=== PATIENT | male | born 1955 | race Caucasian/White ===

== ENCOUNTER 2017-04-11 06:24 | Emergency (ER) | payer BC ==
--- NOTE | 2017-04-11 08:18 | US ---
EXAMINATION TYPE: US venous doppler duplex LE RT DATE OF EXAM: 04/11/2017 7:37 AM COMPARISON: NONE CLINICAL HISTORY: Pain. Pain lower right leg SIDE PERFORMED: Right TECHNIQUE: The lower extremity deep venous system is examined utilizing real time linear array sonog ayah with graded compression, doppler sonography and color-flow sonography. VESSELS IMAGED: External Iliac Vein (EIV) Common Femoral Vein Deep Femoral Vein Greater Saphenous Vein * Femoral Vein Popliteal Vein Small Saphenous Vein * Proximal Calf Veins (* superficial vessels) Right Leg: Negative for DVT No popliteal fossa lesion is seen. IMPRESSION: THIS EXAMINATION IS NEGATIVE FOR DVT IN THE RIGHT LEG.
--- NOTE | 2017-04-11 08:35 | ED ---
General Adult HPI - General Chief complaint: Extremity Injury, Lower Stated complaint: Right Leg Pain Time Seen by Provider: 04/11/17 07:19 Source: patient, RN notes reviewed, old records reviewed Mode of arrival: ambulatory Limitations: no limitations - History of Present Illness Initial comments: This is a 61-year-old male the ER with extremity injury and pain. Patient has right lower extremity pain. Patient denies any previous injury or trauma. Patient concern for blood clot many concerted pain and tingling in his right lower extremity. No back pain. No history of DVT - Related Data Home Medications Medication Instructions Recorded Confirmed Milk Thistle 150 mg PO DAILY 07/09/15 04/11/17 Multivitamins, Thera [Multivitamin] 1 tab PO DAILY 07/09/15 04/11/17 Vitamin B 12 1 tab PO DAILY 07/09/15 04/11/17 Allopurinol [Zyloprim] 150 mg PO DAILY 04/11/17 04/11/17 Lisinopril [Zestril] 20 mg PO BID 04/11/17 04/11/17 Loratadine [Claritin] 10 mg PO DAILY PRN 04/11/17 04/11/17 Metoprolol Tartrate [Lopressor] 25 mg PO BID 04/11/17 04/11/17 Sulfamethox-Tmp 800-160Mg [Bactrim 1 tab PO SUTUFR 04/11/17 04/11/17 DS 800-160 mg] Tamsulosin HCl [Flomax] 0.4 mg PO HS 04/11/17 04/11/17 cycloSPORINE [cycloSPORINE (GEQ 75 mg PO BID 04/11/17 04/11/17 for SandIMMUNE)] Previous Rx's Medication Instructions Recorded Naproxen [Naprosyn] 500 mg PO Q12HR PRN #30 tab 04/11/17 Allergies Allergy/AdvReac Type Severity Reaction Status Date / Time acetaminophen [From Tylenol] AdvReac Unknown HX OF Verified 04/11/17 08:42 LIVER TRANSPLANT- CANNOT TAKE candesartan cilexetil AdvReac Unknown HEADACHE Verified 04/11/17 08:42 [From Atacand] Review of Systems ROS Statement: Those systems with pertinent positive or pertinent negative responses have been documented in the HPI. ROS Other: All systems not noted in ROS Statement are negative. Past Medical History Past Medical History: Hypertension Additional Past Medical History / Comment(s): HX OF HEPATITIS C, LIVER CIRROHOSIS & LIVER TRANSPLANT (1998). GOUT, "KIDNEYS STRESSED" DUE TO LIVER TRANSPLANT. HX OF ESOPHAGEAL VARICIES. History of Any Multi-Drug Resistant Organisms: None Reported Past Surgical History: Tonsillectomy Additional Past Surgical History / Comment(s): LIVER TRANSPLANT (1998), PERIDONTAL CYST, COLONOSCOPY'S, EGD WITH ESOPHAGEAL VARICIES. Past Anesthesia/Blood Transfusion Reactions: No Reported Reaction Additional Past Anesthesia/Blood Transfusion Reaction / Comment(s): HX OF BLOOD TRANSFUSION (NO PROBLEM) Past Psychological History: No Psychological Hx Reported Smoking Status: Former smoker Past Alcohol Use History: None Reported Past Drug Use History: None Reported - Past Family History Mother Family Medical History: No Reported History General Exam Limitations: no limitations General appearance: alert, in no apparent distress Head exam: Present: atraumatic, normocephalic, normal inspection Eye exam: Present: normal appearance, PERRL, EOMI. Absent: scleral icterus, conjunctival injection, periorbital swelling ENT exam: Present: normal exam, mucous membranes moist Neck exam: Present: normal inspection. Absent: tenderness, meningismus, lymphadenopathy Respiratory exam: Present: normal lung sounds bilaterally. Absent: respiratory distress, wheezes, rales, rhonchi, stridor Cardiovascular Exam: Present: regular rate, normal rhythm, normal heart sounds. Absent: systolic murmur, diastolic murmur, rubs, gallop, clicks GI/Abdominal exam: Present: soft, normal bowel sounds. Absent: distended, tenderness, guarding, rebound, rigid Extremities exam: Present: normal inspection, full ROM, normal capillary refill. Absent: tenderness, pedal edema, joint swelling, calf tenderness Back exam: Present: normal inspection Neurological exam: Present: alert, oriented X3, CN II-XII intact Psychiatric exam: Present: normal affect, normal mood Skin exam: Present: warm, dry, intact, normal color. Absent: rash Course Vital Signs 04/11/17 04/11/17 06:35 09:37 Temperature 98.3 F 97.6 F Pulse Rate 68 67 Respiratory 18 16 Rate Blood Pressure 164/69 156/75 O2 Sat by Pulse 98 99 Oximetry Medical Decision Making - Medical Decision Making 61 male the ER with right leg pain pain in right knee and ankle. X-rays are negative for injury. Ultrasound was negative for DVT, patient given pain control and discharged home - Radiology Data Radiology results: report reviewed (Ultrasound x-ray right leg negative for injury, negative for DVT), image reviewed Disposition Clinical Impression: Right leg pain Disposition: HOME SELF-CARE Condition: Good Instructions: Leg Pain (ED) Prescriptions: Naproxen [Naprosyn] 500 mg PO Q12HR PRN #30 tab PRN Reason: Pain Referrals: Leela Cho DO [Primary Care Provider] - 1-2 days
--- NOTE | 2017-04-11 08:48 | XR ---
EXAMINATION TYPE: XR tibia fibula RT , 3 VIEWS DATE OF EXAM ORDERED: 04/11/2017 HISTORY: Pain. COMPARISON: None. FINDINGS: No fracture, dislocation or other acute osseous lesion is seen. There are mild changes of osteoarthritis within the knee. IMPRESSION: NO ACUTE OSSEOUS LESION.
[2017-04-11 09:38] VITALS: BP 156/75; PULSE 67; RESP 16; TEMP 97.6
== END 2017-04-11 09:39 | disposition home or self-care (01) ==
LOC: EC 06:24
DX: M79.604 Pain in right leg (principal); I10 Essential (primary) hypertension; Z87.891 Personal history of nicotine dependence; Z79.899 Other long term (current) drug therapy; Z88.6 Allergy status to analgesic agent; Z88.8 Allergy status to other drugs, medicaments and biological substances
CPT/HCPCS: 99284

== ENCOUNTER 2018-01-28 12:42 | Inpatient (IN) | payer BC ==
[2018-01-28] MEDS ORDERED: SODIUM CHLORIDE 0.9% 500 ML 500 ML IV STA (13:34)
[2018-01-28] MEDS ORDERED: DILTIAZEM DRIP BOLUS FROM BAG 1 MG SOLN IV ONE (13:35)
[2018-01-28] MEDS ORDERED: HEPARIN SODIUM,PORCINE 5,000 UNIT/ML 1 ML VIAL IV ONE (13:36)
--- NOTE | 2018-01-28 13:41 | ED ---
General Adult HPI - General Chief complaint: Arrhythmia/Palpitations Stated complaint: AFIB Time Seen by Provider: 01/28/18 12:45 Source: patient, RN notes reviewed Mode of arrival: ambulatory Limitations: no limitations - History of Present Illness Initial comments: This is a 62-year-old male who presents emergency Department complaining of having atrial fibrillation at this time. Patient states he came in to have knee surgery done they did an EKG on the patient and the patient was in atrial fibrillation. Patient states she has no previous history. Patient denies any palpitations patient denies any chest pain patient denies any difficulty breathing or shortness of breath. Patient denies any symptoms whatsoever. Patient states he has not noticed any lightheadedness or dizziness. Patient denies any numbness weakness. Patient denies any headache. Patient denies any calf pain or leg swelling. - Related Data Home Medications Medication Instructions Recorded Confirmed Multivitamins, Thera [Multivitamin] 1 tab PO DAILY 07/09/15 01/28/18 Vitamin B 12 1 tab PO DAILY 07/09/15 01/28/18 Lisinopril [Zestril] 10 mg PO BID 04/11/17 01/28/18 Loratadine [Claritin] 10 mg PO DAILY PRN 04/11/17 01/28/18 Sulfamethox-Tmp 800-160Mg [Bactrim 1 tab PO SUWESA 04/11/17 01/28/18 DS 800-160 mg] Tamsulosin HCl [Flomax] 0.4 mg PO HS 04/11/17 01/28/18 cycloSPORINE [cycloSPORINE (GEQ 75 mg PO BID 04/11/17 01/28/18 for SandIMMUNE)] Metoprolol Tartrate [Lopressor] 12.5 mg PO BID 01/28/18 01/28/18 Allergies Allergy/AdvReac Type Severity Reaction Status Date / Time acetaminophen [From Tylenol] AdvReac Unknown HX OF Verified 01/28/18 13:10 LIVER TRANSPLANT- CANNOT TAKE candesartan cilexetil AdvReac Unknown HEADACHE Verified 01/28/18 13:10 [From Atacand] Review of Systems ROS Statement: Those systems with pertinent positive or pertinent negative responses have been documented in the HPI. ROS Other: All systems not noted in ROS Statement are negative. Past Medical History Past Medical History: Hypertension Additional Past Medical History / Comment(s): HX OF HEPATITIS C, LIVER CIRROHOSIS & LIVER TRANSPLANT (1998). GOUT, "KIDNEYS STRESSED" DUE TO LIVER TRANSPLANT. HX OF ESOPHAGEAL VARICIES. History of Any Multi-Drug Resistant Organisms: None Reported Past Surgical History: Tonsillectomy Additional Past Surgical History / Comment(s): LIVER TRANSPLANT (1998), PERIDONTAL CYST, COLONOSCOPY'S, EGD WITH ESOPHAGEAL VARICIES, cataracts removed Past Anesthesia/Blood Transfusion Reactions: No Reported Reaction Additional Past Anesthesia/Blood Transfusion Reaction / Comment(s): HX OF BLOOD TRANSFUSION (NO PROBLEM) Past Psychological History: No Psychological Hx Reported Smoking Status: Former smoker Past Alcohol Use History: None Reported Past Drug Use History: None Reported - Past Family History Mother Family Medical History: No Reported History General Exam - General Exam Comments Initial Comments: GENERAL: Patient is well-developed and well-nourished. Patient is nontoxic and well- hydrated and is in mild distress. ENT: Neck is soft and supple. No significant lymphadenopathy is noted. Oropharynx is clear. Moist mucous membranes. Neck has full range of motion without eliciting any pain. EYES: The sclera were anicteric and conjunctiva were pink and moist. Extraocular movements were intact and pupils were equal round and reactive to light. Eyelids were unremarkable. PULMONARY: Unlabored respirations. Good breath sounds bilaterally. No audible rales rhonchi or wheezing was noted. CARDIOVASCULAR: Atrial fibrillation at a rate of 130 beats a minute ABDOMEN: Soft and nontender with normal bowel sounds. No palpable organomegaly was noted. There is no palpable pulsatile mass. SKIN: Skin is clear with no lesions or rashes and otherwise unremarkable. NEUROLOGIC: Patient is alert and oriented x3. Cranial nerves II through XII are grossly intact. Motor and sensory are also intact. Normal speech, volume and content. Symmetrical smile. MUSCULOSKELETAL: Normal extremities with adequate strength and full range of motion. No lower extremity swelling or edema. No calf tenderness. LYMPHATICS: No significant lymphadenopathy is noted PSYCHIATRIC: Normal psychiatric evaluation. Limitations: no limitations Course Vital Signs 01/28/18 01/28/18 12:43 14:03 Temperature 97.9 F Pulse Rate 69 119 H Respiratory 16 18 Rate Blood Pressure 134/78 127/70 O2 Sat by Pulse 95 99 Oximetry Medical Decision Making - Medical Decision Making EKG shows atrial fibrillation with rapid ventricular response at 126 bpm QRS is 94 QT interval 308 QTC is 446. Patient's EKG shows no ST segment elevation or depression or T wave abnormalities are noted. Chest x-ray shows no acute normalities. I started the patient on Cardizem and heparin. I spoke with Dr. Mejia he agreed to admit the patient admitted the patient I consult cardiology. I continue the heparin and Cardizem on the floor. - Lab Data Result diagrams: 01/28/18 13:07 01/28/18 13:07 Lab Results 01/28/18 01/28/18 Range/Units 13:07 13:07 WBC 6.5 (3.8-10.6) k/uL RBC 5.07 (4.30-5.90) m/uL Hgb 15.8 (13.0-17.5) gm/dL Hct 45.9 (39.0-53.0) % MCV 90.5 (80.0-100.0) fL MCH 31.2 (25.0-35.0) pg MCHC 34.5 (31.0-37.0) g/dL RDW 13.1 (11.5-15.5) % Plt Count 156 (150-450) k/uL Neutrophils % 81 % Lymphocytes % 11 % Monocytes % 5 % Eosinophils % 1 % Basophils % 0 % Neutrophils # 5.3 (1.3-7.7) k/uL Lymphocytes # 0.7 L (1.0-4.8) k/uL Monocytes # 0.3 (0-1.0) k/uL Eosinophils # 0.1 (0-0.7) k/uL Basophils # 0.0 (0-0.2) k/uL Sodium 138 (137-145) mmol/L Potassium 4.4 (3.5-5.1) mmol/L Chloride 107 (98-107) mmol/L Carbon Dioxide 22 (22-30) mmol/L Anion Gap 9 mmol/L BUN 29 H (9-20) mg/dL Creatinine 1.27 H (0.66-1.25) mg/dL Est GFR (CKD-EPI)AfAm 69 (>60 ml/min/1.73 sqM) Est GFR (CKD-EPI)NonAf 60 (>60 ml/min/1.73 sqM) Glucose 112 H (74-99) mg/dL Calcium 9.6 (8.4-10.2) mg/dL Magnesium 1.6 (1.6-2.3) mg/dL Total Bilirubin 1.6 H (0.2-1.3) mg/dL AST 44 (17-59) U/L ALT 70 (21-72) U/L Alkaline Phosphatase 98 (38-126) U/L Total Protein 6.2 L (6.3-8.2) g/dL Albumin 3.6 (3.5-5.0) g/dL Critical Care Time Critical Care Time: Yes Total Critical Care Time: 35 Disposition Clinical Impression: Atrial fibrillation with rapid ventricular response Disposition: ADMITTED IP TO THIS HOSP Referrals: Leela Cho DO [Primary Care Provider] - 1-2 days Time of Disposition: 14:09
[2018-01-28 13:49] LABS: Basophils % (A) 0 %; Eosinophils # (A) 0.1 k/uL (0-0.7); Eosinophils % (A) 1 %; HCT 45.9 % (39.0-53.0); HGB 15.8 gm/dL (13.0-17.5); Lymphocytes # (A) 0.7 k/uL (1.0-4.8); Lymphocytes % (A) 11 %; MCH 31.2 pg (25.0-35.0); MCHC 34.5 g/dL (31.0-37.0); MCV 90.5 fL (80.0-100.0); Mean Platelet Volume 7.7; Monocytes # (A) 0.3 k/uL (0-1.0); Monocytes % (A) 5 %; Neutrophils # (A) 5.3 k/uL (1.3-7.7); Neutrophils % (A) 81 %; Platelet Count 156 k/uL (150-450); RBC 5.07 m/uL (4.30-5.90); RDW 13.1 % (11.5-15.5); WBC 6.5 k/uL (3.8-10.6)
--- NOTE | 2018-01-28 13:57 | XR ---
EXAMINATION TYPE: XR chest 2V DATE OF EXAM: 01/28/2018 COMPARISON: None INDICATION: Dysrhythmia TECHNIQUE: Frontal and lateral views of the chest are obtained. FINDINGS: The heart size is normal. The pulmonary vasculature is normal. The lungs are clear. IMPRESSION: 1. No acute pulmonary process.
[2018-01-28 14:01] LABS: Albumin 3.6 g/dL (3.5-5.0); Calcium 9.6 mg/dL (8.4-10.2); Magnesium 1.6 mg/dL (1.6-2.3); Potassium 4.4 mmol/L (3.5-5.1); Total Bilirubin 1.6 mg/dL (0.2-1.3); Total Protein 6.2 g/dL (6.3-8.2)
[2018-01-28] MEDS: DILTIAZEM 50 MG in SODIUM CHLORIDE 0.9% 40 ML IV SCH (14:04)
[2018-01-28] MEDS: HEPARIN SOD,PORK IN 0.45% NACL 25,000 UNIT in 0.45% NACL 1 500ML.BAG IV SCH (14:06)
[2018-01-28] MEDS ORDERED: NITROGLYCERIN SL TABS 0.4 MG TAB SUBLINGUAL PRN (14:09)
[2018-01-28 14:11] LABS: Partial Thromboplastin Time 23.5 sec (22.0-30.0); Prothrombin Time 10.1 sec (9.0-12.0)
[2018-01-28 14:17] LABS: T4, Free (Free Thyroxine) 1.3 ng/dL (0.78-2.19)
[2018-01-28 14:24] LABS: Creatine Kinase MB 1.9 ng/mL (0.0-2.4)
[2018-01-28 14:33] LABS: Troponin I 0.061 ng/mL (0.000-0.034)
[2018-01-28] MEDS ORDERED: LORATADINE 10 MG TAB PO PRN (15:37)
--- NOTE | 2018-01-28 15:55 | P.HPIM ---
History of Present Illness H&P Date: 01/28/18 Chief Complaint: Nica. fib RVR This is a 62-year-old male, patient of Dr. Cho'michelle. He has a known past medical history of hypertension, hepatitis C treated with Harvoni, liver cirrhosis with liver transplant in 1990. Also prior to the liver transplant history of esophageal varices they did require banding. Patient has been dealing with a torn left meniscus and was scheduled today with Dr. Nam Robbins for orthopedic surgery. Patient was in the office at and had a routine EKG completed which happened to show atrial fibrillation with rapid ventricular response. They sent patient to the ER for further evaluation and treatment. Patient denies any chest pain or heart palpitations. Denies any shortness of breath. Denies any dizziness or lightheadedness. He reports no previous history of atrial fibrillation. And in fact had medical clearance with Dr. Cho 2 weeks ago with normal EKG per patient. Patient denies any history of strokes or TIAs. Patient's thyroid level is normal. He does have a slight elevation to his troponin of 0.061. Total bili 1.6 creatinine elevated at 1.27. Patient started on IV Cardizem drip and IV heparin drip in the ER. Cardiology has been consulted. Patient denies any fever or chills or sweats. Denies any nausea or vomiting. Denies any bowel movement changes or urinary symptoms. Review of Systems Please refer to HPI otherwise unremarkable Past Medical History Past Medical History: Hypertension Additional Past Medical History / Comment(s): HX OF HEPATITIS C, LIVER CIRROHOSIS & LIVER TRANSPLANT (1998). GOUT, "KIDNEYS STRESSED" DUE TO LIVER TRANSPLANT. HX OF ESOPHAGEAL VARICIES. History of Any Multi-Drug Resistant Organisms: None Reported Past Surgical History: Tonsillectomy Additional Past Surgical History / Comment(s): LIVER TRANSPLANT (1998), PERIDONTAL CYST, COLONOSCOPY'S, EGD WITH ESOPHAGEAL VARICIES, cataracts removed Past Anesthesia/Blood Transfusion Reactions: No Reported Reaction Additional Past Anesthesia/Blood Transfusion Reaction / Comment(s): HX OF BLOOD TRANSFUSION (NO PROBLEM) Past Psychological History: No Psychological Hx Reported Smoking Status: Former smoker Past Alcohol Use History: None Reported Past Drug Use History: None Reported - Past Family History Mother Family Medical History: No Reported History Medications and Allergies Home Medications Medication Instructions Recorded Confirmed Type Multivitamins, Thera [Multivitamin] 1 tab PO DAILY 07/09/15 01/28/18 History Vitamin B 12 1 tab PO DAILY 07/09/15 01/28/18 History Lisinopril [Zestril] 10 mg PO BID 04/11/17 01/28/18 History Loratadine [Claritin] 10 mg PO DAILY PRN 04/11/17 01/28/18 History Sulfamethox-Tmp 800-160Mg [Bactrim 1 tab PO SUWESA 04/11/17 01/28/18 History DS 800-160 mg] Tamsulosin HCl [Flomax] 0.4 mg PO HS 04/11/17 01/28/18 History cycloSPORINE [cycloSPORINE (GEQ 75 mg PO BID 04/11/17 01/28/18 History for SandIMMUNE)] Metoprolol Tartrate [Lopressor] 12.5 mg PO BID 01/28/18 01/28/18 History Allergies Allergy/AdvReac Type Severity Reaction Status Date / Time acetaminophen [From Tylenol] AdvReac Unknown HX OF Verified 01/28/18 13:10 LIVER TRANSPLANT- CANNOT TAKE candesartan cilexetil AdvReac Unknown HEADACHE Verified 01/28/18 13:10 [From Atacand] Physical Exam Vitals: Vital Signs Temp Pulse Resp BP Pulse Ox 01/28/18 15:20 115 H 18 139/76 98 01/28/18 15:10 124 H 18 122/61 98 01/28/18 15:00 101 H 18 139/62 98 01/28/18 14:50 99 18 131/87 97 01/28/18 14:20 114 H 18 150/70 98 01/28/18 14:03 119 H 18 127/70 99 01/28/18 12:43 97.9 F 69 16 134/78 95 Intake and Output 01/28/18 01/28/18 01/28/18 06:59 14:59 22:59 Other: Weight 118.841 kg Head normocephalic Neck supple Lungs clear to auscultation bilaterally no wheezing or crackles Heart irregular A. fib on monitor Abdomen is soft nontender nondistended positive bowel sounds no hepatosplenomegaly Extremities no edema Neuro alert and orientated to 3 Results CBC & Chem 7: 01/28/18 13:07 01/28/18 13:07 Labs: Abnormal Lab Results - Last 24 Hours (Table) 01/28/18 01/28/18 01/28/18 Range/Units 13:07 13:07 13:07 Lymphocytes # 0.7 L (1.0-4.8) k/uL BUN 29 H (9-20) mg/dL Creatinine 1.27 H (0.66-1.25) mg/dL Glucose 112 H (74-99) mg/dL Total Bilirubin 1.6 H (0.2-1.3) mg/dL Troponin I 0.061 H* (0.000-0.034) ng/mL Total Protein 6.2 L (6.3-8.2) g/dL Assessment and Plan Assessment: 1. New onset of atrial fibrillation with rapid ventricular response: EKG shows A. fib with RVR heart rate of 126. Patient started on IV Cardizem drip and IV heparin in the emergency room. Cardiology has been consulted. Thyroid level normal 2. Elevated troponin: Cardiology consulted. Continue to monitor serial cardiac enzymes. 3. Possible chronic kidney disease, stage II: Creatinine 1.27. We'll monitor. Patient's creatinine 2015 range between 1.31-1.46. 4. Essential hypertension 5. History of hep C treated with Harvoni 6. Liver cirrhosis with liver transplant in 1998 at [facility]. Maintained on cyclosporine and Bactrim for organ transplant rejection prophylaxis 7. History of esophageal varices required banding in the 8. Remote history of alcohol use. Patient reports he is no longer drinking alcohol 9. Left meniscal tear which he was scheduled outpatient for surgery today with Dr. Zhao GI prophylaxis Protonix and DVT prophylaxis IV heparin Time with Patient: Greater than 30 (Greater than 60% of the total time spent in counseling and coordination of care.I performed an examination of the patient and discussed their management with the physician Lab Instructor. I have reviewed the Physician Lab Instructor's notes and agree with the documented findings and plan of care)
[2018-01-28 19:39] LABS: Creatine Kinase MB 1.8 ng/mL (0.0-2.4)
[2018-01-28 20:00] LABS: Troponin I 0.073 ng/mL (0.000-0.034)
[2018-01-28] MEDS ORDERED: TAMSULOSIN 0.4 MG CAP.ER.24H PO SCH (21:00)
[2018-01-28] MEDS ORDERED: cycloSPORINE 25 MG CAP PO SCH (21:00)
[2018-01-28] MEDS: LISINOPRIL 10 MG TAB PO SCH (21:05)
[2018-01-28] MEDS: METOPROLOL TARTRATE 12.5 MG TAB PO SCH (21:05)
[2018-01-29 01:35] LABS: Creatine Kinase MB 1.7 ng/mL (0.0-2.4)
[2018-01-29 01:36] LABS: Troponin I 0.065 ng/mL (0.000-0.034)
[2018-01-29] MEDS: DILTIAZEM 50 MG in SODIUM CHLORIDE 0.9% 40 ML IV SCH ×2 (02:46→09:00)
[2018-01-29 07:50] LABS: Basophils % (A) 0 %; Eosinophils # (A) 0.1 k/uL (0-0.7); Eosinophils % (A) 2 %; HCT 41.6 % (39.0-53.0); Lymphocytes # (A) 0.9 k/uL (1.0-4.8); Lymphocytes % (A) 15 %; MCH 30.8 pg (25.0-35.0); MCHC 33.8 g/dL (31.0-37.0); MCV 91.3 fL (80.0-100.0); Mean Platelet Volume 7.7; Monocytes # (A) 0.3 k/uL (0-1.0); Monocytes % (A) 5 %; Neutrophils # (A) 4.7 k/uL (1.3-7.7); Neutrophils % (A) 77 %; Platelet Count 141 k/uL (150-450); RBC 4.55 m/uL (4.30-5.90); RDW 13.3 % (11.5-15.5); WBC 6.1 k/uL (3.8-10.6)
[2018-01-29 08:02] LABS: Albumin 2.9 g/dL (3.5-5.0); Calcium 8.6 mg/dL (8.4-10.2); Potassium 3.9 mmol/L (3.5-5.1); Total Bilirubin 1.1 mg/dL (0.2-1.3); Total Protein 5.2 g/dL (6.3-8.2)
[2018-01-29] MEDS ORDERED: HEPARIN SODIUM,PORCINE 5,000 UNIT/ML 1 ML VIAL IV PRN (08:11)
[2018-01-29] MEDS ORDERED: SULFAMETHOX-TMP 800-160MG 1 EACH TAB PO SCH (09:00)
[2018-01-29] MEDS: METOPROLOL TARTRATE 12.5 MG TAB PO SCH (09:00)
[2018-01-29] MEDS: LISINOPRIL 10 MG TAB PO SCH (09:00)
[2018-01-29] MEDS ORDERED: ASPIRIN 325 MG TAB PO SCH (09:00)
[2018-01-29] MEDS ORDERED: FAMOTIDINE 20 MG TAB PO SCH (09:00)
--- NOTE | 2018-01-29 09:23 | P.CRDCN ---
History of Present Illness Consult date: 01/29/18 Requesting physician: David Mejia Reason for Consult (text): new onset atrial fibrillation with RVR Chief complaint: incidental finding of Afib preoperatively History of present illness: This is a pleasant 62-year-old gentleman with history of hypertension, liver cirrhosis, status post liver transplant in 1998, hepatitis C, treated with Harvoni about 4 years ago. [facility] surgery for a torn meniscus. EKG on arrival showed the patient to be in atrial fibrillation with rapid ventricular response. Patient denies having any significant symptoms at the time. Does say he felt just something "different" in his chest. Patient was initiated on heparin drip and Cardizem drip upon arrival. Last night, patient converted to normal sinus rhythm. EKG shows no evidence of significant ischemia. He apparently underwent echocardiogram at Dr. Cho's office preoperatively which according to the patient was normal. #20 values show normal TSH and free T4, evidence of renal failure with a healing of 33 and creatinine 1.54 this morning. Troponins were mildly elevated at 0.061, 0.073 and 0.065. Liver enzymes are normal. Vital signs are stable. Patient has been resumed on home dose of metoprolol tartrate 12.5 mg by mouth twice a day. Cardizem drip has been discontinued. Upon examination, patient is resting comfortably in bed. He does say he snores quite a bit, has never underwent sleep study. He's had no complaints of dizziness, lightheadedness, chest discomfort, palpitations, feeling his heart racing, syncope, shortness of breath or significant edema. He does get some mild edema after being on his feet all day which resolves by morning. Past Medical History Past Medical History: Hypertension Additional Past Medical History / Comment(s): past HX OF HEPATITIS C, LIVER CIRROHOSIS & LIVER TRANSPLANT (1998). GOUT, diverticulosis,hx broken rt leg-no sx, lt knee pain. HX OF ESOPHAGEAL VARICIES. History of Any Multi-Drug Resistant Organisms: None Reported Past Surgical History: Tonsillectomy Additional Past Surgical History / Comment(s): liver bx,LIVER TRANSPLANT (1998) , PERIDONTAL CYST, COLONOSCOPIES, EGD WITH ESOPHAGEAL VARICIES, cataracts removed, NASAL SX D/T BROKEN NOSE, VARICOSE VEIN SX Past Anesthesia/Blood Transfusion Reactions: No Reported Reaction Additional Past Anesthesia/Blood Transfusion Reaction / Comment(s): HX OF BLOOD TRANSFUSION (NO PROBLEM) Smoking Status: Former smoker - Past Family History Mother Family Medical History: No Reported History Medications and Allergies Home Medications Medication Instructions Recorded Confirmed Type Multivitamins, Thera [Multivitamin] 1 tab PO DAILY 07/09/15 01/28/18 History Vitamin B 12 1 tab PO DAILY 07/09/15 01/28/18 History Lisinopril [Zestril] 10 mg PO BID 04/11/17 01/28/18 History Loratadine [Claritin] 10 mg PO DAILY PRN 04/11/17 01/28/18 History Sulfamethox-Tmp 800-160Mg [Bactrim 1 tab PO SUWESA 04/11/17 01/28/18 History DS 800-160 mg] Tamsulosin HCl [Flomax] 0.4 mg PO HS 04/11/17 01/28/18 History Cyclosporine, Modified 75 mg PO BID 01/28/18 01/28/18 History [Cyclosporine Modified] Metoprolol Tartrate [Lopressor] 12.5 mg PO BID 01/28/18 01/28/18 History Allergies Allergy/AdvReac Type Severity Reaction Status Date / Time acetaminophen [From Tylenol] AdvReac Unknown HX OF Verified 01/28/18 13:10 LIVER TRANSPLANT- CANNOT TAKE candesartan cilexetil AdvReac Unknown HEADACHE Verified 01/28/18 13:10 [From Atacand] Physical Exam Vitals: Vital Signs Temp Pulse Pulse Pulse Resp BP BP 01/29/18 04:00 97.7 F 71 69 16 136/70 01/29/18 00:00 63 15 119/84 01/28/18 20:00 98.2 F 106 H 70 17 121/71 01/28/18 16:19 97.8 F 109 H 18 113/88 01/28/18 15:20 115 H 18 139/76 01/28/18 15:10 124 H 18 122/61 01/28/18 15:00 101 H 18 139/62 01/28/18 14:50 99 18 131/87 01/28/18 14:20 114 H 18 150/70 01/28/18 14:03 119 H 18 127/70 01/28/18 12:43 97.9 F 69 16 134/78 Pulse Ox 01/29/18 04:00 96 01/29/18 00:00 96 01/28/18 20:00 97 01/28/18 16:19 98 01/28/18 15:20 98 01/28/18 15:10 98 01/28/18 15:00 98 01/28/18 14:50 97 01/28/18 14:20 98 01/28/18 14:03 99 01/28/18 12:43 95 Intake and Output 01/28/18 01/29/18 01/29/18 22:59 06:59 14:59 Intake Total 282.583 724.333 237.388 Balance 282.583 724.333 237.388 Intake: IV 40 Invasive Line 1 20 Invasive Line 2 20 Intake, IV Titration 42.583 204.333 237.388 Amount Diltiazem 50 mg In Sodium 42.583 Chloride 0.9% 40 ml @ 5 MG/HR 5 mls/hr IV .Q10H ELIDA Rx#:[id number] Heparin Sod,Pork in 0.45% 204.333 237.388 NaCl 25,000 unit In 0.45 % NaCl 1 500ml.bag @ 8. 415 UNITS/KG/HR 20 mls/hr IV .Q24H ELIDA Rx#: [id number] Oral 240 480 0 Other: Voiding Method Toilet Toilet # Voids 1 2 Weight 120.7 kg PHYSICAL EXAMINATION: HEENT: Head is atraumatic, normocephalic. Pupils equal, round. Neck is supple. There is no elevated jugular venous pressure. No carotid bruit. HEART EXAMINATION: Heart sounds regular, S1 and S2 normal. No murmur or gallop heard. CHEST EXAMINATION: Lungs are clear to auscultation and precussion. No chest wall tenderness is noted on palpation or with deep breathing. ABDOMEN: Soft, nontender. Bowel sounds are heard. No organomegaly noted. EXTREMITIES: 2+ peripheral pulses with no evidence of peripheral edema and no calf tenderness noted. NEUROLOGIC patient is awake, alert and oriented x3. . Results 01/29/18 06:49 01/29/18 06:49 Cardiac Enzymes 01/28/18 01/28/18 01/28/18 Range/Units 13:07 13:07 18:48 AST 44 (17-59) U/L CK-MB (CK-2) 1.9 1.8 (0.0-2.4) ng/mL Troponin I 0.061 H* 0.073 H* (0.000-0.034) ng/mL 01/29/18 01/29/18 Range/Units 00:29 06:49 AST 27 (17-59) U/L CK-MB (CK-2) 1.7 (0.0-2.4) ng/mL Troponin I 0.065 H* (0.000-0.034) ng/mL Coagulation 01/28/18 01/28/18 01/29/18 Range/Units 13:07 22:14 06:49 PT 10.1 (9.0-12.0) sec APTT 23.5 29.0 41.2 H (22.0-30.0) sec Lipids 01/29/18 Range/Units 06:49 Triglycerides 114 (<150) mg/dL Cholesterol 156 (<200) mg/dL HDL Cholesterol 33 L (40-60) mg/dL CBC 01/28/18 01/29/18 Range/Units 13:07 06:49 WBC 6.5 6.1 (3.8-10.6) k/uL RBC 5.07 4.55 (4.30-5.90) m/uL Hgb 15.8 14.0 (13.0-17.5) gm/dL Hct 45.9 41.6 (39.0-53.0) % Plt Count 156 141 L (150-450) k/uL Comprehensive Metabolic Panel 01/28/18 01/29/18 Range/Units 13:07 06:49 Sodium 138 139 (137-145) mmol/L Potassium 4.4 3.9 (3.5-5.1) mmol/L Chloride 107 107 (98-107) mmol/L Carbon Dioxide 22 24 (22-30) mmol/L BUN 29 H 33 H (9-20) mg/dL Creatinine 1.27 H 1.54 H (0.66-1.25) mg/dL Glucose 112 H 93 (74-99) mg/dL Calcium 9.6 8.6 (8.4-10.2) mg/dL AST 44 27 (17-59) U/L ALT 70 58 (21-72) U/L Alkaline Phosphatase 98 83 (38-126) U/L Total Protein 6.2 L 5.2 L (6.3-8.2) g/dL Albumin 3.6 2.9 L (3.5-5.0) g/dL Current Medications Generic Name Dose Route Start Last Admin Trade Name Freq PRN Reason Stop Dose Admin Aspirin 325 mg 01/29/18 09:00 01/29/18 09:00 Aspirin PO 325 mg DAILY ELIDA Administration Cyanocobalamin 500 mcg 01/29/18 12:00 Vitamin B-12 PO 1200 ELIDA Cyclosporine 75 mg 01/28/18 21:00 01/29/18 09:00 Neoral PO 75 mg BID ELIDA Administration Famotidine 20 mg 01/29/18 09:00 01/29/18 09:00 Pepcid PO 20 mg DAILY ELIDA Administration Heparin Sodium (Porcine) 0 unit 01/29/18 08:11 01/29/18 09:04 Heparin IV 3,000 unit PER PROTOCOL PRN Administration Low PTT Protocol Diltiazem HCl 50 mg/ Sodium 50 mls @ 5 mls/hr 01/28/18 13:45 01/29/18 09:00 Chloride IV Not Given .Q10H ELIDA 5 MG/HR Heparin Sodium/Sodium Chloride 500 mls @ 20 mls/hr 01/28/18 13:45 01/29/18 09 :04 25,000 unit/ Sodium Chloride IV 13.42 units/kg/hr .Q24H ELIDA 31.9 mls/hr Titration Protocol 8.415 UNITS/KG/HR Lisinopril 10 mg 01/28/18 21:00 01/29/18 09:00 Zestril PO 10 mg BID ELIDA Administration Loratadine 10 mg 01/28/18 15:37 Claritin PO DAILY PRN Allergy Symptoms Metoprolol Tartrate 12.5 mg 01/28/18 21:00 01/29/18 09:00 Lopressor PO 12.5 mg BID ELIDA Administration Multivitamins 1 each 01/29/18 12:00 Theragran PO 1200 ELIDA Nitroglycerin 0.4 mg 01/28/18 14:09 Nitrostat SUBLINGUAL Q5M PRN Chest Pain Tamsulosin HCl 0.4 mg 01/28/18 21:00 01/28/18 21:05 Flomax PO 0.4 mg HS ELIDA Administration Trimethoprim/Sulfamethoxazole 1 each 01/29/18 09:00 01/29/18 09:00 Bactrim Ds PO 1 each SuWeSa@0900 ELIDA Administration Intake and Output 01/28/18 01/29/18 01/29/18 22:59 06:59 14:59 Intake Total 282.583 724.333 237.388 Balance 282.583 724.333 237.388 Intake: IV 40 Invasive Line 1 20 Invasive Line 2 20 Intake, IV Titration 42.583 204.333 237.388 Amount Diltiazem 50 mg In Sodium 42.583 Chloride 0.9% 40 ml @ 5 MG/HR 5 mls/hr IV .Q10H ELIDA Rx#:[id number] Heparin Sod,Pork in 0.45% 204.333 237.388 NaCl 25,000 unit In 0.45 % NaCl 1 500ml.bag @ 8. 415 UNITS/KG/HR 20 mls/hr IV .Q24H ELIDA Rx#: [id number] Oral 240 480 0 Other: Voiding Method Toilet Toilet # Voids 1 2 Weight 120.7 kg 01/29/18 06:49 01/29/18 06:49 EKG Interpretations (text) Initial EKG showed atrial fibrillation with rapid ventricular response, subsequent EKG showed normal sinus rhythm Assessment and Plan Assessment: #1 new onset paroxysmal atrial fibrillation with rapid ventricular response, currently maintaining sinus rhythm #2 hypertension #3 obesity #4 probable sleep apnea #5 liver cirrhosis, status post liver transplant in 1998 #6 hepatitis C, treated with Harvoni about 4 years ago Plan: From cardiology perspective, we will increase beta rody dose. Xarelto is not recommended if creatinine clearance is less than 80 while on cyclosporine. Eliquis is recommended to be given at a lower dose fast we will check coverage for 2.5 mg by mouth twice a day. Recommended to the patient to have outpatient sleep study for which he is very hesitant. If patient has coverage for anticoagulant, likely discharged later today. Plan outpatient follow-up with Dr. Combs and anticipate outpatient stress testing, likely Lexiscan due to patient's knee issues and inability to walk on a treadmill. MACHINE ENGINEER note has been reviewed, I agree with a documented findings and plan of care. Patient was seen and examined.
[2018-01-29] MEDS ORDERED: METOPROLOL TARTRATE 12.5 MG TAB PO ONE (09:30)
[2018-01-29] MEDS ORDERED: METOPROLOL TARTRATE 25 MG TAB PO SCH ×2 (09:30→21:00)
[2018-01-29] MEDS: HEPARIN SOD,PORK IN 0.45% NACL 25,000 UNIT in 0.45% NACL 1 500ML.BAG IV SCH (09:36)
[2018-01-29 10:24] VITALS: RESP 16
[2018-01-29] MEDS ORDERED: MULTIVITAMINS, THERA 1 EACH TAB PO SCH (12:00)
[2018-01-29] MEDS ORDERED: CYANOCOBALAMIN 500 MCG TAB PO SCH (12:00)
[2018-01-29 13:30] VITALS: BP 162/77; PULSE 67; TEMP 97
--- NOTE | 2018-01-29 14:36 | P.DS ---
Providers Date of admission: 01/28/18 14:11 Expected date of discharge: 01/29/18 Attending physician: David Mejia Consults: 01/28/18 14:09 Consult Physician Urgent Consulting Provider: [facility] Consult Reason/Comments: A. fib with rapid ventricular response Do you want consulting provider notified?: Yes Consult Physician Urgent Consulting Provider: [facility] Consult Reason/Comments: A. fib with rapid ventricular response Do you want consulting provider notified?: Yes Primary care physician: Leela Cho [facility] Course: Diagnosis on discharge: 1. New onset of atrial fibrillation with rapid ventricular response: EKG shows A. fib with RVR heart rate of 126. Patient started on IV Cardizem drip and IV heparin in the emergency room. Cardiology has been consulted. Thyroid level normal 2. Elevated troponin: Cardiology consulted. Continue to monitor serial cardiac enzymes. 3. Possible chronic kidney disease, stage II: Creatinine 1.27. We'll monitor. Patient's creatinine 2015 range between 1.31-1.46. 4. Essential hypertension 5. History of hep C treated with Harvoni 6. Liver cirrhosis with liver transplant in 1998 at [facility]. Maintained on cyclosporine and Bactrim for organ transplant rejection prophylaxis 7. History of esophageal varices required banding in the 8. Remote history of alcohol use. Patient reports he is no longer drinking alcohol 9. Left meniscal tear which he was scheduled outpatient for surgery today with Dr. Zhao GI prophylaxis Protonix and DVT prophylaxis IV heparin Hospital course: This is a 62-year-old male, patient of Dr. Cho's. He has a known past medical history of hypertension, hepatitis C treated with Harvoni, liver cirrhosis with liver transplant in 1990. Also prior to the liver transplant history of esophageal varices they did require banding. Patient has been dealing with a torn left meniscus and was scheduled today with Dr. Nam Robbins for orthopedic surgery. Patient was in the office at and had a routine EKG completed which happened to show atrial fibrillation with rapid ventricular response. They sent patient to the ER for further evaluation and treatment. Patient denies any chest pain or heart palpitations. Denies any shortness of breath. Denies any dizziness or lightheadedness. He reports no previous history of atrial fibrillation. And in fact had medical clearance with Dr. Cho 2 weeks ago with normal EKG per patient. Patient denies any history of strokes or TIAs. Patient's thyroid level is normal. He does have a slight elevation to his troponin of 0.061. Total bili 1.6 creatinine elevated at 1.27. Patient started on IV Cardizem drip and IV heparin drip in the ER. Cardiology has been consulted. Patient denies any fever or chills or sweats. Denies any nausea or vomiting. Denies any bowel movement changes or urinary symptoms. During this admission, patient was seen by cardiology, dose of metoprolol was increased, also Eliquis 2.5 mg by mouth twice daily was added to her regimen, patient was stable, his heart rate was well controlled he was evaluated by cardiology and was cleared for discharge. He was discharged home on 01/29/2018 , he will follow-up with his primary care physician Dr. Leela Cho within one week, he will also follow-up with ivory carver Dr. Combs as outpatient. Plan - Discharge Summary Discharge Rx Participant: No New Discharge Prescriptions: No Action Multivitamins, Thera [Multivitamin] 1 tab PO DAILY Vitamin B 12 1 tab PO DAILY Sulfamethox-Tmp 800-160Mg [Bactrim DS 800-160 mg] 1 tab PO SUWESA Loratadine [Claritin] 10 mg PO DAILY PRN PRN Reason: Allergy Symptoms Lisinopril [Zestril] 10 mg PO BID Tamsulosin HCl [Flomax] 0.4 mg PO HS Metoprolol Tartrate [Lopressor] 12.5 mg PO BID Cyclosporine, Modified [Cyclosporine Modified] 75 mg PO BID Discharge Medication List Multivitamins, Thera [Multivitamin] 1 tab PO DAILY 07/09/15 [History] Vitamin B 12 1 tab PO DAILY 07/09/15 [History] Lisinopril [Zestril] 10 mg PO BID 04/11/17 [History] Loratadine [Claritin] 10 mg PO DAILY PRN 04/11/17 [History] Sulfamethox-Tmp 800-160Mg [Bactrim DS 800-160 mg] 1 tab PO SUWESA 04/11/17 [ History] Tamsulosin HCl [Flomax] 0.4 mg PO HS 04/11/17 [History] Cyclosporine, Modified [Cyclosporine Modified] 75 mg PO BID 01/28/18 [History] Metoprolol Tartrate [Lopressor] 12.5 mg PO BID 01/28/18 [History] Follow up Appointment(s)/Referral(s): Dawit Combs MD [STAFF PHYSICIAN] - 02/15/18 4:30 pm Leela Cho DO [Primary Care Provider] - 1-2 days
== END 2018-01-29 16:02 | disposition home or self-care (01) | DRG 309 ==
LOC: EC 12:42 → 6SEL 14:11
PROVIDERS: ADMIT Internal Medicine; ATTEND Internal Medicine
DX: I48.0 Paroxysmal atrial fibrillation (principal); Z94.4 Liver transplant status; E66.9 Obesity, unspecified; G47.30 Sleep apnea, unspecified; K57.90 Diverticulosis of intestine, part unspecified, without perforation or abscess without bleeding; M10.9 Gout, unspecified; I12.9 Hypertensive chronic kidney disease with stage 1 through stage 4 chronic kidney disease, or unspecified chronic kidney disease; N18.2 Chronic kidney disease, stage 2 (mild); R77.9 Abnormality of plasma protein, unspecified; S83.207A Unspecified tear of unspecified meniscus, current injury, left knee, initial encounter; Z87.891 Personal history of nicotine dependence; Z79.899 Other long term (current) drug therapy; Z88.6 Allergy status to analgesic agent; Z88.8 Allergy status to other drugs, medicaments and biological substances; Z98.42 Cataract extraction status, left eye; Z98.41 Cataract extraction status, right eye; Z96.1 Presence of intraocular lens; Z68.38 Body mass index [BMI] 38.0-38.9, adult
CPT/HCPCS: 36415; 71046; 80053; 80061; 82550; 82553; 83735; 84439; 84443; 84484; 85025; 85610; 85730; 93005; 96365; 96366; 96368; 96376; 99291

== ENCOUNTER → 2019-10-26 | Day surgery (SDC) | payer BC ==
[2019-10-24 11:07] VITALS: BMI 38.7
[~2019-10-26] MED LIST: LACTATED RINGERS 1,000 ML IV SCH; LIDOCAINE 1% (10MG/ML) FOR IV START INTRADERMA ONE; LIDOCAINE 1% INJ 10MG/ML (20 ML MDV) ONE; PROPOFOL 10 MG/ML 20 ML VIAL IV ONE
--- NOTE | 2019-10-26 11:43 | P.GSHP ---
History of Present Illness H&P Date: 10/26/19 Chief Complaint: Screening colonoscopy This is a 64-year-old male been sick for screening colonoscopy. Patient denies any significant GI complaints. Past Medical History Past Medical History: Atrial Fibrillation, Hypertension Additional Past Medical History / Comment(s): HX OF HEPATITIS C, LIVER CIRROHOSIS & LIVER TRANSPLANT (1998). GOUT, DIVERTICULOSIS, ESOPHAGEAL VARICIES WITH BANDING., LOW RBCS. History of Any Multi-Drug Resistant Organisms: None Reported Past Surgical History: Tonsillectomy Additional Past Surgical History / Comment(s): LIVER BX ,LIVER TRANSPLANT (1998), PERIDONTAL CYST, COLONOSCOPIES, EGD WITH ESOPHAGEAL VARICIES BANDED, CATARACTS, NASAL SX D/T BROKEN NOSE, VARICOSE VEIN SX Past Anesthesia/Blood Transfusion Reactions: No Reported Reaction Additional Past Anesthesia/Blood Transfusion Reaction / Comment(s): . Past Psychological History: No Psychological Hx Reported Smoking Status: Former smoker Past Alcohol Use History: Heavy Additional Past Alcohol Use History / Comment(s): STARTED SMOKNG 1970, QUIT 1995 SMOKED 1PPD, PAST HEAVY ETOH-QUIT 1995 Past Drug Use History: None Reported - Past Family History Mother Family Medical History: No Reported History Father Family Medical History: Cancer Additional Family Medical History / Comment(s): BRONCHIAL CANCER Medications and Allergies Home Medications Medication Instructions Recorded Confirmed Type RX: Sulfamethox-Tmp 800-160Mg 1 tab PO SUTUFR 04/11/17 10/26/19 History [Bactrim DS 800-160 mg] RX: Cyclosporine, Modified 75 mg PO BID 01/28/18 10/26/19 History [Cyclosporine Modified] Allopurinol [Zyloprim] 50 mg PO DAILY 10/24/19 10/26/19 History Apixaban [Eliquis] 5 mg PO BID 10/24/19 10/26/19 History Calcium/Magnesium/Zinc 1 each PO DAILY 10/24/19 10/26/19 History [Jnpbneg-Fjnsahukk-Gfmh Tablet] Ferrous Sulfate [Feosol] 325 mg PO DAILY 10/24/19 10/26/19 History Lisinopril [Zestril] 20 mg PO BID 10/24/19 10/26/19 History Metoprolol Succinate (ER) [Toprol 50 mg PO DAILY 10/24/19 10/26/19 History Xl] Multivit-Min/FA/Lycopen/Lutein 1 each PO DAILY 10/24/19 10/26/19 History [Centrum Silver Tablet] RX: Ibuprofen 200 mg PO DIRECTED PRN 10/24/19 10/26/19 History RX: Vitamin B Complex 1 each PO DAILY 10/24/19 10/26/19 History Terazosin [Hytrin] 2 mg PO DAILY 10/24/19 10/26/19 History Allergies Allergy/AdvReac Type Severity Reaction Status Date / Time acetaminophen [From Tylenol] AdvReac Unknown HX OF Verified 10/26/19 10:41 LIVER TRANSPLANT- CANNOT TAKE candesartan cilexetil AdvReac Unknown HEADACHE Verified 10/26/19 10:41 [From Atacand] Surgical - Exam Vital Signs Temp Pulse Resp BP Pulse Ox 98.1 F 76 18 139/65 96 10/26/19 10:35 10/26/19 10:35 10/26/19 10:35 10/26/19 10:35 10/26/19 10:35 - General well developed, well nourished, no distress - Eyes PERRL - ENT normal pinna - Neck no masses - Respiratory normal expansion - Cardiovascular Rhythm: regular - Abdomen Abdomen: soft, non tender Assessment and Plan Assessment: We'll perform screening colonoscopy
--- NOTE | 2019-10-26 11:46 | P.OP ---
Date of Procedure: 10/26/19 Preoperative Diagnosis: Screening colonoscopy Postoperative Diagnosis: Diverticulosis External hemorrhoids Procedure(s) Performed: Colonoscopy Anesthesia: MAC Surgeon: Dc Stapleton Pathology: none sent Condition: stable Disposition: PACU Description of Procedure: The patient's placed on the endoscopy table lateral position. He received IV sedation. Digital rectal exam was performed which revealed external hemorrhoids. The proximal colonoscope was then placed patient anus passed throughout the entire colon. Ileocecal valve sutures. The cecum, ascending colon appeared normal. In the transverse descending and; there is extensive diverticular changes. There is no evidence of diverticula is. Scope was brought back the rectum this appeared normal. Scope withdrawn the patient and internal and external hemorrhoids were noted.
[2019-10-27 08:40] VITALS: BP 127/81; PULSE 60; RESP 18; TEMP 98.1
--- NOTE | 2019-10-30 11:48 | CDI ---
Date: 10.30.2019 CDS/Library Clerk Name: Lisbet Baum Phone: If any questions, call Emily Frazier Utility Sales Representative at [phone] Patient Name: Uday Paula Admit Date: 10.26.19 Discharge Date: 10.26.19 ATTENTION: The [facility] Coding Staff appreciate your assistance in clarifying documentation. Please respond to the clarification below the line at the bottom and electronically sign. The [facility] Coding staff will review the response and follow-up if needed. Please note: Queries are made part of the Legal Health Record. If you have any questions, please contact the Utility Sales Representative. Dear Dr. Stapleton In the description of your colonoscopy report it is documented there is extensive diverticular changes. There is no evidence of diverticula. Please document whether the pt was found to have diverticular changes/diverticula. Thank you for your kind consideration. Report corrected MTDD
== END ==
LOC: ORWHC2ENDO 10:09
PROVIDERS: ATTEND Surgery
DX: Z12.11 Encounter for screening for malignant neoplasm of colon (principal); K57.30 Diverticulosis of large intestine without perforation or abscess without bleeding; K64.4 Residual hemorrhoidal skin tags; I48.91 Unspecified atrial fibrillation; I10 Essential (primary) hypertension; M10.9 Gout, unspecified; I85.00 Esophageal varices without bleeding; Z86.19 Personal history of other infectious and parasitic diseases; Z94.4 Liver transplant status; Z87.19 Personal history of other diseases of the digestive system; Z90.89 Acquired absence of other organs; Z98.890 Other specified postprocedural states; Z98.41 Cataract extraction status, right eye; Z98.42 Cataract extraction status, left eye; Z87.81 Personal history of (healed) traumatic fracture; Z86.79 Personal history of other diseases of the circulatory system; Z87.891 Personal history of nicotine dependence; Z79.899 Other long term (current) drug therapy; Z79.01 Long term (current) use of anticoagulants; Z79.891 Long term (current) use of opiate analgesic; Z88.6 Allergy status to analgesic agent; Z88.8 Allergy status to other drugs, medicaments and biological substances; Z80.1 Family history of malignant neoplasm of trachea, bronchus and lung
CPT/HCPCS: G0121; J2001; J2704

== ENCOUNTER 2020-11-28 08:43 | Emergency (ER) | payer BC ==
[2020-11-28 08:48] VITALS: TEMP 97.7
[2020-11-28] MEDS ORDERED: ASPIRIN 81 MG PO STA (09:07)
[2020-11-28] MEDS ORDERED: NITROGLYCERIN SL TABS 0.4 MG TAB SUBLINGUAL STA (09:07)
--- NOTE | 2020-11-28 09:18 | ED ---
Chest Pain HPI - General Chief Complaint: Chest Pain Stated Complaint: Chest pain Time Seen by Provider: 11/28/20 08:49 Source: patient, RN notes reviewed Mode of arrival: wheelchair Limitations: no limitations - History of Present Illness Initial Comments: This is a 65-year-old male with a history of her fibrillation the past also history of cirrhosis hepatitis C and a liver transplant in 1998 who presents with complaints of the onset of left-sided chest discomfort this morning woke him up about an hour prior to arrival. The pain is squeezing-type discomfort he points to the anterior lateral chest wall area not abdominal no fevers chills nausea vomiting sweats and palpitations no other complaints. He states pain is about 4/10 severity nothing seems make it better nothing seems make it worse MD Complaint: chest pain - Related Data Home Medications Medication Instructions Recorded Confirmed Sulfamethox-Tmp 800-160Mg [Bactrim 1 tab PO SUTUFR 04/11/17 10/26/19 DS 800-160 mg] Cyclosporine, Modified 75 mg PO BID 01/28/18 10/26/19 [Cyclosporine Modified] Apixaban [Eliquis] 5 mg PO BID 10/24/19 10/26/19 Calcium/Magnesium/Zinc 1 each PO DAILY 10/24/19 10/26/19 [Xouqshl-Kjhyzimud-Jbzt Tablet] Ferrous Sulfate [Feosol] 325 mg PO DAILY 10/24/19 10/26/19 Ibuprofen 200 mg PO DIRECTED PRN 10/24/19 10/26/19 Metoprolol Succinate (ER) [Toprol 50 mg PO DAILY 10/24/19 10/26/19 Xl] Multivit-Min/FA/Lycopen/Lutein 1 each PO DAILY 10/24/19 10/26/19 [Centrum Silver Tablet] Terazosin [Hytrin] 2 mg PO DAILY 10/24/19 10/26/19 Vitamin B Complex 1 each PO DAILY 10/24/19 10/26/19 allopurinoL [Zyloprim] 50 mg PO DAILY 10/24/19 10/26/19 lisinopriL [Zestril] 20 mg PO BID 10/24/19 10/26/19 Previous Rx's Medication Instructions Recorded Orphenadrine [Norflex] 100 mg PO Q12H #7 tablet.er 11/28/20 Allergies Allergy/AdvReac Type Severity Reaction Status Date / Time acetaminophen [From Tylenol] AdvReac Unknown HX OF Verified 11/28/20 08:45 LIVER TRANSPLANT- CANNOT TAKE candesartan cilexetil AdvReac Unknown HEADACHE Verified 11/28/20 08:45 [From Atacand] Review of Systems ROS Statement: Those systems with pertinent positive or pertinent negative responses have been documented in the HPI. ROS Other: All systems not noted in ROS Statement are negative. EKG Findings - EKG Results: EKG: interpreted by ERMD, sinus rhythm (Sinus rhythm with sinus arrhythmia noted rate 58. Interval 174 QRS 94 QT since QTC 444/435 evidence of repolarization and prominent T waves) Past Medical History Past Medical History: Atrial Fibrillation, Hypertension Additional Past Medical History / Comment(s): HX OF HEPATITIS C, LIVER CIRROHOSIS & LIVER TRANSPLANT (1998). GOUT, DIVERTICULOSIS, ESOPHAGEAL VARICIES WITH BANDING., LOW RBCS. History of Any Multi-Drug Resistant Organisms: None Reported Past Surgical History: Tonsillectomy Additional Past Surgical History / Comment(s): LIVER BX ,LIVER TRANSPLANT (1998), PERIDONTAL CYST, COLONOSCOPIES, EGD WITH ESOPHAGEAL VARICIES BANDED, CATARACTS, NASAL SX D/T BROKEN NOSE, VARICOSE VEIN SX Past Anesthesia/Blood Transfusion Reactions: No Reported Reaction Additional Past Anesthesia/Blood Transfusion Reaction / Comment(s): . Past Psychological History: No Psychological Hx Reported Smoking Status: Former smoker Past Alcohol Use History: None Reported Past Drug Use History: None Reported - Past Family History Mother Family Medical History: No Reported History Father Family Medical History: Cancer Additional Family Medical History / Comment(s): BRONCHIAL CANCER General Exam - General Exam Comments Initial Comments: This is a well-developed well-nourished awake alert oriented 3 male Limitations: no limitations General appearance: alert, in no apparent distress Head exam: Present: atraumatic, normocephalic, normal inspection Eye exam: Present: normal appearance, PERRL, EOMI. Absent: scleral icterus, conjunctival injection, periorbital swelling ENT exam: Present: normal exam, mucous membranes moist Neck exam: Present: normal inspection. Absent: tenderness, meningismus, lymphadenopathy Respiratory exam: Present: normal lung sounds bilaterally, chest wall tenderness (Equivocal tenderness palpation over the chest wall to location on the lateral costal chondral margin inferior to the nipple line on the left). Absent: respiratory distress, wheezes, rales, rhonchi, stridor Cardiovascular Exam: Present: regular rate, normal rhythm, normal heart sounds. Absent: systolic murmur, diastolic murmur, rubs, gallop, clicks GI/Abdominal exam: Present: soft, normal bowel sounds. Absent: distended, tenderness, guarding, rebound, rigid Extremities exam: Present: full ROM, normal capillary refill, other (Stasis changes noted no edema). Absent: tenderness, pedal edema, joint swelling, calf tenderness Back exam: Present: normal inspection Neurological exam: Present: alert, oriented X3, CN II-XII intact Psychiatric exam: Present: normal affect, normal mood Skin exam: Present: warm, dry, intact, normal color. Absent: rash Course Vital Signs 11/28/20 11/28/20 11/28/20 08:45 09:00 09:22 Temperature 97.7 F Pulse Rate 57 L 58 L 65 Respiratory 18 18 12 Rate Blood Pressure 204/85 180/96 128/77 O2 Sat by Pulse 97 96 Oximetry 11/28/20 11/28/20 11/28/20 09:45 10:00 10:30 Temperature Pulse Rate 58 L 56 L 54 L Respiratory 14 16 18 Rate Blood Pressure 144/69 139/76 140/74 O2 Sat by Pulse 97 96 95 Oximetry - Reevaluation(s) Reevaluation #1: 11/28/20 11:02 Patient got no relief from nitroglycerin however the patient does recall that he was in an out of a car last night at work at least 100 times this may be the precipitating event causing the discomfort. Chest Pain MDM - MDM Imaging reviewed no acute findings patient was reexamined there is point tenderness in the intercostal musculature that reproduces the patient's pain the presentation is consistent with musculoskeletal pain Disposition Clinical Impression: Chest wall syndrome Disposition: HOME SELF-CARE Condition: Good Instructions (If sedation given, give patient instructions): Chest Wall Pain (ED) Additional Instructions: I suspect Tylenol for pain as needed, warm compresses. Prescriptions: Orphenadrine [Norflex] 100 mg PO Q12H #7 tablet.er Is patient prescribed a controlled substance at d/c from ED?: No Referrals: Leela Cho DO [Primary Care Provider] - 1-2 days
[2020-11-28 09:25] LABS: HCT 37.8 % (39.0-53.0); MCH 32.6 pg (25.0-35.0); MCHC 34.3 g/dL (31.0-37.0); MCV 95.1 fL (80.0-100.0); Mean Platelet Volume 8.2; Platelet Count 139 k/uL (150-450); RBC 3.98 m/uL (4.30-5.90); RDW 13.9 % (11.5-15.5); WBC 4.5 k/uL (3.8-10.6)
[2020-11-28 09:37] LABS: Partial Thromboplastin Time 25.7 sec (22.0-30.0); Prothrombin Time 10.6 sec (9.0-12.0)
[2020-11-28 09:49] LABS: Calcium 9.6 mg/dL (8.4-10.2); Magnesium 1.9 mg/dL (1.6-2.3); Potassium 4.6 mmol/L (3.5-5.1); Total Bilirubin 0.8 mg/dL (0.2-1.3); Total Protein 6.3 g/dL (6.3-8.2)
--- NOTE | 2020-11-28 09:55 | XR ---
EXAMINATION TYPE: XR chest 2V DATE OF EXAM: 11/28/2020 COMPARISON: 01/28/2018 HISTORY: 65-year-old male with chest pain TECHNIQUE: PA and lateral views FINDINGS: Heart normal size. Aorta and vasculature within normal limits. Mild interstitial prominence is unchan ged. No consolidation or pleural effusion. IMPRESSION: Interstitial prominence could reflect bronchitis or asthma. No focal infiltrate seen.
[2020-11-28 10:25] LABS: Band Neutrophils % 3 %; Eosinophils # (M) 0.14 k/uL (0-0.7); Lymphocytes # (M) 1.22 k/uL (1.0-4.8); Monocytes # (M) 0.36 k/uL (0-1.0); Neutrophils % (M) 59 %; Nucleated Red Blood Cells 0 /100 WBC (0-0); Total Cells Counted 100
[2020-11-28 10:49] VITALS: BP 140/74; PULSE 54; RESP 18
== END 2020-11-28 11:20 | disposition home or self-care (01) ==
LOC: EC 08:43
DX: R07.1 Chest pain on breathing (principal); I10 Essential (primary) hypertension; I48.91 Unspecified atrial fibrillation; Z88.8 Allergy status to other drugs, medicaments and biological substances; Z87.891 Personal history of nicotine dependence; Z88.6 Allergy status to analgesic agent; Z79.899 Other long term (current) drug therapy; Z79.01 Long term (current) use of anticoagulants
CPT/HCPCS: 36415; 71046; 80053; 82550; 83690; 83735; 83880; 84484; 85025; 85379; 85610; 85730; 93005; 99285

== ENCOUNTER → 2022-08-04 | Outpatient (CLI) | payer BC ==
[2022-08-04 23:11] LABS: African American GFR (CKD) 23.5 (60.0-200.0); Anion Gap 9.9 mmol/L (10.00-18.00); BUN/Creat Ratio 17.62 Ratio (12.00-20.00); Blood Urea Nitrogen 53.4 mg/dL (9.0-27.0); Calcium 9.3 mg/dL (8.7-10.3); Carbon Dioxide 26.5 mmol/L (20.0-27.5); Non-African American GFR(CKD) 20.3 (60.0-200.0); Potassium 5.4 mmol/L (3.5-5.5)
== END | disposition home or self-care (01) ==
LOC: LABWHC1 12:36
PROVIDERS: ATTEND Family Medicine
DX: N18.4 Chronic kidney disease, stage 4 (severe) (principal); N17.0 Acute kidney failure with tubular necrosis
CPT/HCPCS: 36415; 80048

== ENCOUNTER 2022-12-03 09:11 | Day surgery (SDC) | payer BC ==
[2022-11-27 14:34] VITALS: BMI 38.0
[2022-12-03] MEDS: LACTATED RINGERS 1,000 ML IV SCH ×2 (09:40→10:50)
[2022-12-03 09:56] VITALS: RESP 16; TEMP 97.9
[2022-12-03] MEDS ORDERED: PROPOFOL 10 MG/ML 20 ML VIAL IV ONE (10:53)
--- NOTE | 2022-12-03 10:57 | P.GSHP ---
History of Present Illness H&P Date: 12/03/22 Chief Complaint: Family history of colon cancer Is a 59-year-old male presents today for colonoscopy. Patient has a strong family history of colon cancer with several HAVING colon cancer. Last colonoscopy was performed approximate 4 years ago. Past Medical History Past Medical History: Atrial Fibrillation, Hypertension Additional Past Medical History / Comment(s): HX OF HEPATITIS C, LIVER CIRROHOSIS & LIVER TRANSPLANT (1998). GOUT, DIVERTICULOSIS, ESOPHAGEAL VARICIES WITH BANDING., LOW RBCS. stage 3 kidney disease History of Any Multi-Drug Resistant Organisms: None Reported Past Surgical History: Cholecystectomy, Tonsillectomy Additional Past Surgical History / Comment(s): LIVER BX ,LIVER TRANSPLANT (1998), PERIDONTAL CYST, COLONOSCOPIES, EGD WITH ESOPHAGEAL VARICIES BANDED, CATARACTS, NASAL SX D/T BROKEN NOSE, VARICOSE VEIN SX. foot surgery hammer toes left Past Anesthesia/Blood Transfusion Reactions: No Reported Reaction Additional Past Anesthesia/Blood Transfusion Reaction / Comment(s): no blood transfusion reaction. Smoking Status: Former smoker - Past Family History Mother Family Medical History: No Reported History Father Family Medical History: Cancer Additional Family Medical History / Comment(s): BRONCHIAL CANCER Medications and Allergies Home Medications Medication Instructions Recorded Confirmed Type Cyclosporine, Modified 50 mg PO BID 01/28/18 12/03/22 History [Cyclosporine Modified] Apixaban [Eliquis] 5 mg PO BID 10/24/19 12/03/22 History Ferrous Sulfate [Feosol] 325 mg PO DAILY 10/24/19 12/03/22 History Multivit-Min/FA/Lycopen/Lutein 1 each PO DAILY 10/24/19 12/03/22 History [Centrum Silver Tablet] Terazosin [Hytrin] 2 mg PO DAILY 10/24/19 12/03/22 History Vitamin B Complex 1 each PO DAILY 10/24/19 12/03/22 History allopurinoL [Zyloprim] 50 mg PO DAILY 10/24/19 12/03/22 History lisinopriL [Zestril] 20 mg PO BID 10/24/19 12/03/22 History Magnesium 200 mg PO BID 11/27/22 12/03/22 History Metoprolol Succinate (ER) [Toprol 50 mg PO DAILY 11/27/22 12/03/22 History Xl] Allergies Allergy/AdvReac Type Severity Reaction Status Date / Time acetaminophen [From Tylenol] AdvReac Unknown HX OF Verified 12/03/22 09:44 LIVER TRANSPLANT- CANNOT TAKE candesartan cilexetil AdvReac Unknown HEADACHE Verified 12/03/22 09:44 [From Atacand] Surgical - Exam Vital Signs Temp Pulse Resp BP Pulse Ox 97.9 F 64 16 142/76 97 12/03/22 09:54 12/03/22 09:54 12/03/22 09:54 12/03/22 09:54 12/03/22 09:54 - General well developed, well nourished, no distress - Eyes PERRL - ENT normal pinna - Neck no masses - Respiratory normal expansion - Cardiovascular Rhythm: regular - Abdomen Abdomen: soft, non tender Assessment and Plan Assessment: Family history of colon cancer. We'll perform colonoscopy.
--- NOTE | 2022-12-03 11:14 | P.OP ---
Date of Procedure: 12/03/22 Preoperative Diagnosis: Family history of colon cancer Postoperative Diagnosis: Diverticulosis Internal hemorrhoids Procedure(s) Performed: Colonoscopy Anesthesia: MAC Surgeon: Dc Stapleton Pathology: none sent Condition: stable Disposition: PACU Description of Procedure: Patient's placed on the endoscopy table in the lateral position. He received IV sedation. Digital rectal exam was performed. This revealed internal hemorrhoids. Flexible colonoscope was then placed patient anus and passed thr oughout the entire colon. The ileocecal valve was visualized. Cecum, ascending and transverse colon appeared normal. In the descending and sigmoid colon there is extensive diverticular changes. The scope was then brought back the rectum and this appeared normal. The scope was then withdrawn from the patient.
[2022-12-03 11:24] VITALS: BP 131/74; PULSE 57
== END 2022-12-03 11:47 | disposition home or self-care (01) ==
LOC: ORWHC2ENDO 09:11
PROVIDERS: ATTEND Surgery
DX: Z12.11 Encounter for screening for malignant neoplasm of colon (principal); K57.30 Diverticulosis of large intestine without perforation or abscess without bleeding; K64.8 Other hemorrhoids; I48.91 Unspecified atrial fibrillation; I10 Essential (primary) hypertension; Z80.0 Family history of malignant neoplasm of digestive organs; Z90.49 Acquired absence of other specified parts of digestive tract; Z94.4 Liver transplant status; Z98.890 Other specified postprocedural states; Z87.891 Personal history of nicotine dependence; Z80.1 Family history of malignant neoplasm of trachea, bronchus and lung; Z79.01 Long term (current) use of anticoagulants; Z88.6 Allergy status to analgesic agent; Z79.899 Other long term (current) drug therapy
CPT/HCPCS: 45378; J2704

== ENCOUNTER → 2023-01-01 | Outpatient (CLI) | payer BC ==
[2023-01-01 12:19] LABS: Basophils % (A) 0 %; Eosinophils # (A) 0.1 k/uL (0-0.7); Eosinophils % (A) 3 %; HCT 30.6 % (39.0-53.0); HGB 10.6 gm/dL (13.0-17.5); Lymphocytes # (A) 0.9 k/uL (1.0-4.8); Lymphocytes % (A) 17 %; MCH 32.9 pg (25.0-35.0); MCHC 34.6 g/dL (31.0-37.0); MCV 95.3 fL (80.0-100.0); Mean Platelet Volume 8.3; Monocytes # (A) 0.2 k/uL (0-1.0); Monocytes % (A) 5 %; Neutrophils # (A) 3.7 k/uL (1.3-7.7); Neutrophils % (A) 73 %; Platelet Count 148 k/uL (150-450); RBC 3.21 m/uL (4.30-5.90); RDW 13.4 % (11.5-15.5)
[2023-01-01 13:16] LABS: Appearance,Urine Clear (Clear); Bilirubin,Urine Negative (Negative); Blood,Urine Negative (Negative); Color,Urine Yellow; Glucose,Urine (UA) Negative (Negative); Hyaline Casts,Urine 7 /lpf (0-2); Ketones,Urine Negative (Negative); Leukocyte Esterase,Urine Negative (Negative); Mucus,Urine Rare /hpf; Nitrite,Urine Negative (Negative); Protein,Urine 3+ (Negative); RBC,Urine 1 /hpf (0-5); Specific Gravity,Urine 1.015 (1.001-1.035); Urobilinogen,Urine <2.0 mg/dL (<2.0); WBC,Urine 2 /hpf (0-5)
[2023-01-01 13:36] LABS: Creatinine,Urine Random 244.2 mg/dL
[2023-01-01 13:45] LABS: Protein/Creatinine Ratio,Urine 2.449
[2023-01-01 21:08] LABS: Uric Acid 6.4 mg/dL (3.7-8.7)
[2023-01-01 21:09] LABS: ALT 39 U/L (10-49); AST 26 U/L (14-35); Albumin 4.2 d/dL (3.8-4.9); Albumin/Globulin Ratio 2.33 Ratio (1.60-3.17); Alkaline Phosphatase 141 U/L (41-126); BUN/Creat Ratio 13.12 Ratio (12.00-20.00); Blood Urea Nitrogen 44.6 mg/dL (9.0-27.0); Calcium 9.4 mg/dL (8.7-10.3); Carbon Dioxide 21.6 mmol/L (21.6-31.8); Chloride 106 mmol/L (96-109); Globulin 1.8 d/dL (1.6-3.3); Glucose 113 mg/dL (70-110); Iron 83 UG/DL (65-175); Sodium 138 mmol/L (135-145); Total Bilirubin 0.6 mg/dL (0.3-1.2); Total Iron Binding Capacity 266 UG/DL (228-460)
== END | disposition home or self-care (01) ==
LOC: LABWHC1 10:48
PROVIDERS: ATTEND Internal Medicine
DX: N17.9 Acute kidney failure, unspecified (principal)
CPT/HCPCS: 36415; 80053; 81001; 82043; 82306; 82570; 82728; 83540; 83550; 83970; 84100; 84156; 84550; 85025; 87086